=== PATIENT | female | born 1955 | race Native Hawaiian/Other Pacific Islander ===

== ENCOUNTER 2020-04-10 18:01 | Emergency (ER) | payer OTHER ==
[~2020-04-10] VITALS: Ht 154.9 cm; Wt 57.6 kg
[2020-04-10 18:50] LABS: POTASSIUM 3.9 mmol/L (3.6-5.2)
[2020-04-10 19:00] LABS: PLATELET COUNT 137 K/uL (152-353)
[2020-04-10 19:50] VITALS: BP 129/70; TEMP 98.2
[2020-04-11] MEDS ORDERED: LORA0.5T17 PO (02:13)
[2020-04-11] MEDS ORDERED: LIPITOR40 MG PO (02:14)
[2020-04-11] MEDS ORDERED: BACLOFEN20 MG PO (02:17)
[2020-04-11] MEDS ORDERED: LAXATIVE RE (02:18)
[2020-04-11] MEDS ORDERED: BUSPIRONE15 MG PO (02:19)
[2020-04-11] MEDS ORDERED: [UNRECOGNIZED DRUG - OTHER] RE (02:21)
[2020-04-11] MEDS ORDERED: LAMICTAL XR50 MG PO (02:24)
[2020-04-11] MEDS ORDERED: FURO20TA67 PO (02:26)
[2020-04-11] MEDS ORDERED: LEVE5MLUD PO (02:28)
[2020-04-11] MEDS ORDERED: LEXAPRO20 MG PO (02:29)
[2020-04-11] MEDS ORDERED: METO-837 PO (02:30)
[2020-04-11] MEDS ORDERED: MULTI VITAMIN A1 TAB PO (02:31)
[2020-04-11] MEDS ORDERED: MAGNSUS68 PO (02:31)
[2020-04-11] MEDS ORDERED: PRAZ1CAP16 PO (02:35)
[2020-04-11] MEDS ORDERED: PRAZOSIN HCL2 MG PO (02:35)
[2020-04-11] MEDS ORDERED: OMEP20CA PO (02:36)
[2020-04-11] MEDS ORDERED: TOVIAZ4 MG PO (02:38)
[2020-04-11] MEDS ORDERED: TRAM50TA PO (02:39)
[2020-04-11] MEDS ORDERED: ACET-206 PO (02:39)
[2020-04-11] MEDS ORDERED: OLAN2.5T2 PO (02:40)
[2020-04-11] MEDS ORDERED: TRAZODONE HYDRO50 MG PO (02:41)
[2020-04-11] MEDS ORDERED: BUSP5TAB2 PO (02:44)
== END 2020-04-10 19:50 | disposition still patient (30) ==
LOC: ED 18:01
PROVIDERS: Hospitalist
DX: F03.91 Unspecified dementia, unspecified severity, with behavioral disturbance (principal); Z72.811 Adult antisocial behavior; Z11.59 Encounter for screening for other viral diseases; Z04.6 Encounter for general psychiatric examination, requested by authority
CPT/HCPCS: 36415; 80053; 85027; 87635; 93005; 99283; G2023; U0003